=== PATIENT | female | born 1995 | race Caucasian/White ===

== ENCOUNTER 2020-03-11 17:02 | Inpatient (IN) | payer BC, SELFPAY ==
[~2020-03-11] VITALS: Ht 157.5 cm; Wt 65.8 kg
[2020-03-11 19:12] LABS: ALBUMIN 4.2 g/dL (3.4-5.0); BILIRUBIN TOTAL 0.5 mg/dL (0.20-1.00); CALCIUM 8.2 mg/dL (8.5-10.1); CREATININE SERUM 1.4 mg/dL (0.6-1.0); POTASSIUM SERUM 4.3 mmol/L (3.5-5.1)
[2020-03-11 19:14] LABS: BAND NEUTROPHIL 1 % (0-10); BASOPHIL 0 % (0-2); MONOCYTE 8 % (0-7); SEGMENTED NEUTROPHILS 86 % (37-75)
[2020-03-11 19:15] LABS: rbc morphology (normal/abnorm) ABNORMAL (NORMAL)
[2020-03-11 19:16] LABS: PLATELET COUNT 530 x10^3mcL (179-408)
[2020-03-11 20:14] LABS: UA SPECIFIC GRAVITY >=1.030 (1.005-1.035); microscopic required? YES; urine erythrocyte 1+ (NEGATIVE)
[2020-03-11 20:15] LABS: CARBON DIOXIDE 7.6 mmol/L (21-32)
[2020-03-11] MEDS ORDERED: INSULIN SYRING1 EA29 (22:41)
[2020-03-11] MEDS ORDERED: LANTI (22:41)
[2020-03-11 23:51] VITALS: BP 130/80
[2020-03-12 01:37] LABS: CALCIUM 7.6 mg/dL (8.5-10.1); CARBON DIOXIDE 12.5 mmol/L (21-32); CHLORIDE SERUM 107 mmol/L (98-107); GFR1 > 60 mL/min; GLUCOSE SERUM 191 mg/dL (74-106); SODIUM SERUM 142 mmol/L (136-145)
[2020-03-12 07:14] LABS: CALCIUM 7.7 mg/dL (8.5-10.1); CARBON DIOXIDE 11.2 mmol/L (21-32); CHLORIDE SERUM 108 mmol/L (98-107); GFR1 > 60 mL/min; GLUCOSE SERUM 262 mg/dL (74-106); SODIUM SERUM 144 mmol/L (136-145)
[2020-03-12 07:16] LABS: POTASSIUM SERUM 2.9 mmol/L (3.5-5.1)
[2020-03-12 07:45] VITALS: BP 138/78
[2020-03-12 11:15] VITALS: BP 104/67
[2020-03-12 14:57] LABS: CALCIUM 7.6 mg/dL (8.5-10.1); CARBON DIOXIDE 14.2 mmol/L (21-32); CHLORIDE SERUM 109 mmol/L (98-107); CREATININE SERUM 0.8 mg/dL (0.6-1.0); GFR1 > 60 mL/min; GLUCOSE SERUM 202 mg/dL (74-106); POTASSIUM SERUM 3.9 mmol/L (3.5-5.1); SODIUM SERUM 141 mmol/L (136-145)
[2020-03-12 15:12] VITALS: BP 117/72
[2020-03-12 16:58] LABS: CARBON DIOXIDE 21.2 mmol/L (21-32); CREATININE SERUM 0.9 mg/dL (0.6-1.0); GFR1 > 60 mL/min; GLUCOSE SERUM 216 mg/dL (74-106); SODIUM SERUM 145 mmol/L (136-145)
[2020-03-12 17:04] LABS: CHLORIDE SERUM 110 mmol/L (98-107)
[2020-03-12 17:25] LABS: POTASSIUM SERUM 2.8 mmol/L (3.5-5.1)
[2020-03-12 19:15] VITALS: BP 123/66
[2020-03-12 20:34] LABS: CALCIUM 7.4 mg/dL (8.5-10.1); CARBON DIOXIDE 20.3 mmol/L (21-32); CHLORIDE SERUM 106 mmol/L (98-107); CREATININE SERUM 0.8 mg/dL (0.6-1.0); GFR1 > 60 mL/min; GLUCOSE SERUM 216 mg/dL (74-106); SODIUM SERUM 142 mmol/L (136-145)
[2020-03-12 20:43] LABS: POTASSIUM SERUM 2.4 mmol/L (3.5-5.1)
[2020-03-12 23:30] VITALS: BP 135/82
[2020-03-13 00:22] LABS: CALCIUM 7.4 mg/dL (8.5-10.1); CARBON DIOXIDE 23.2 mmol/L (21-32); CHLORIDE SERUM 106 mmol/L (98-107); CREATININE SERUM 0.8 mg/dL (0.6-1.0); GFR1 > 60 mL/min; GLUCOSE SERUM 209 mg/dL (74-106); SODIUM SERUM 143 mmol/L (136-145)
[2020-03-13 00:23] LABS: POTASSIUM SERUM 2.8 mmol/L (3.5-5.1)
[2020-03-13 00:24] LABS: BASOPHIL % 0.7 % (0-2); PLATELET COUNT 328 x10^3mcL (130-400); RED CELL DISTRIBUTION WIDTH 13.9 % (11.5-14.5)
[2020-03-13 03:45] VITALS: BP 132/76
[2020-03-13 06:21] LABS: BASOPHIL % 0.3 % (0.2-1.3); PLATELET COUNT 281 x10^3mcL (179-408)
[2020-03-13 07:00] LABS: CALCIUM 7.4 mg/dL (8.5-10.1); CARBON DIOXIDE 24.5 mmol/L (21-32); CHLORIDE SERUM 105 mmol/L (98-107); CREATININE SERUM 0.8 mg/dL (0.6-1.0); GFR1 > 60 mL/min; GLUCOSE SERUM 199 mg/dL (74-106); SODIUM SERUM 142 mmol/L (136-145)
[2020-03-13 07:09] LABS: RED CELL DISTRIBUTION WIDTH 14.8 % (12.3-17.7)
[2020-03-13 07:24] LABS: POTASSIUM SERUM 2.7 mmol/L (3.5-5.1)
[2020-03-13 07:42] VITALS: Ht 157.5 cm; Wt 65.8 kg
[2020-03-13 08:00] VITALS: BP 141/84
[2020-03-13 11:09] LABS: CARBON DIOXIDE 26.4 mmol/L (21-32); CHLORIDE SERUM 105 mmol/L (98-107); CREATININE SERUM 0.7 mg/dL (0.6-1.0); GFR1 > 60 mL/min; GLUCOSE SERUM 200 mg/dL (74-106); SODIUM SERUM 143 mmol/L (136-145)
[2020-03-13 11:13] LABS: POTASSIUM SERUM 2.7 mmol/L (3.5-5.1)
[2020-03-13 12:00] VITALS: BP 119/86
[2020-03-13 16:00] VITALS: BP 116/78
[2020-03-13 18:33] LABS: CALCIUM 8.4 mg/dL (8.5-10.1); CARBON DIOXIDE 22.9 mmol/L (21-32); CHLORIDE SERUM 103 mmol/L (98-107); CREATININE SERUM 0.7 mg/dL (0.6-1.0); GFR1 > 60 mL/min; GLUCOSE SERUM 241 mg/dL (74-106); POTASSIUM SERUM 3.1 mmol/L (3.5-5.1); SODIUM SERUM 141 mmol/L (136-145)
[2020-03-13 20:40] VITALS: BP 139/79
[2020-03-14 05:24] VITALS: BP 110/67
[2020-03-14 08:53] VITALS: BP 139/100
[2020-03-14 13:28] VITALS: BP 137/93
[2020-03-14 14:10] LABS: BASOPHIL % 1.3 % (0.2-1.3); PLATELET COUNT 292 x10^3mcL (179-408)
[2020-03-14 14:15] LABS: RED CELL DISTRIBUTION WIDTH 14.7 % (12.3-17.7)
[2020-03-14 14:42] LABS: CARBON DIOXIDE 20.7 mmol/L (21-32); CHLORIDE SERUM 99 mmol/L (98-107); CREATININE SERUM 0.6 mg/dL (0.6-1.0); GFR1 > 60 mL/min; GLUCOSE SERUM 197 mg/dL (74-106); POTASSIUM SERUM 3.1 mmol/L (3.5-5.1); SODIUM SERUM 138 mmol/L (136-145)
== END 2020-03-14 14:09 | disposition left against medical advice (07) | DRG 637 ==
LOC: ED 17:02 → IC 20:20 → DU 03-13 18:54
PROVIDERS: Emergency Medicine; ADMIT Internal Medicine; ATTEND Internal Medicine
DX: E11.10 Type 2 diabetes mellitus with ketoacidosis without coma (principal); J96.01 Acute respiratory failure with hypoxia; N17.9 Acute kidney failure, unspecified; Z20.828 Contact with and (suspected) exposure to other viral communicable diseases; E86.0 Dehydration; R00.0 Tachycardia, unspecified; E11.65 Type 2 diabetes mellitus with hyperglycemia; D72.829 Elevated white blood cell count, unspecified; E87.6 Hypokalemia; Z53.29 Procedure and treatment not carried out because of patient's decision for other reasons; Z88.8 Allergy status to other drugs, medicaments and biological substances; Z79.899 Other long term (current) drug therapy
CPT/HCPCS: 36600; 82962; 83880; 87804; G0378; J1815; J2060; J2405; J2543; J2550; J3480; J3490; J7030; J7042